=== PATIENT | male | born 1985 | race African-American/Black ===

== ENCOUNTER 2021-02-27 01:53 | Emergency (ER) | payer MEDICAID ==
[~2021-02-27] VITALS: Ht 182.9 cm; Wt 114.0 kg
[2021-02-27] MEDS ORDERED: KETOROLAC 60MG/2ML VIAL IM ONE (02:30)
[2021-02-27 02:38] VITALS: BP 139/82
[2021-02-27] MEDS ORDERED: NAPR-681 MT (04:15)
== END 2021-02-27 04:28 | disposition home or self-care (01) ==
LOC: ER 01:53
DX: M25.561 Pain in right knee (principal); F32.A Depression, unspecified
CPT/HCPCS: 73564; 96372; 99283; J1885